=== PATIENT | female | born 1970 | race Caucasian/White ===

== ENCOUNTER 2017-07-08 09:43 | Emergency (ER) | payer OTHER ==
[~2017-07-08] VITALS: Wt 89.0 kg
[~2017-07-08 09:43] MED LIST: ACET500C5 PO; CLIN-73 PO; MUPI22OI2 IN
--- NOTE | 2017-07-08 11:48 | ERD ---
ER Documentation Chief Complaint Chief Complaint recheck of abscess to r underarm HPI This a 46-year-old female presents the emergency department today for wound check of abscesses that she had drained 2 days ago. Patient states she is taking her antibiotics as prescribed. States she is taking her diabetes medication. Denies any fevers or chills. ROS All systems reviewed and are negative except as per history of present illness. Medications Home Meds Active Scripts Acetaminophen* (Tylophen*) 500 Mg Capsule, 1 CAP PO Q6H Y for PAIN AND OR ELEVATED TEMP, #20 CAP Prov:JUSTINE BLOOD PA-C 07/06/17 Clindamycin Hcl* (Clindamycin Hcl*) 300 Mg Capsule, 300 MG PO TID for 10 Days, CAP Prov:JUSTINE BLOOD PA-C 07/06/17 Mupirocin* (Bactroban*) 2% -22 Gram Oint...g., 1 APPLIC IN BID for 7 Days, EA Prov:JUSTINE BLOOD PA-C 07/06/17 PMhx/Soc History of Surgery: No Anesthesia Reaction: No Hx Neurological Disorder: No Hx Respiratory Disorders: No Hx Cardiac Disorders: Yes (htn, cholesterol ) Hx Psychiatric Problems: No Hx Miscellaneous Medical Probl: Yes (dm) Hx Alcohol Use: No Hx Substance Use: No Hx Tobacco Use: No Physical Exam Vitals Vital Signs Date Time Temp Pulse Resp B/P Pulse Ox O2 Delivery O2 Flow Rate FiO2 07/08/17 09:57 98.0 78 18 180/84 99 Physical Exam Const: morbidly obese, NAD Head: Atraumatic Eyes: Normal Conjunctiva ENT: Normal External Ears, Nose and Mouth. Neck: Full range of motion..~ No meningismus. Resp: Clear to auscultation bilaterally Cardio: Regular rate and rhythm, no murmurs Abd: Soft, non tender, non distended. Normal bowel sounds Skin: Right groin and right abdomen abscesses with evidence of packing. Mild drainage. No erythema or warmth. Right axilla abscess is draining. No evidence of packing Back: No midline or flank tenderness Ext: No cyanosis, or edema Neur: Awake and alert Psych: Normal Mood and Affect Procedures/MDM This is a 46-year-old female who presents the emergency department today for wound check of abscess that she had drained 2 days ago. On review of patient's medical records she was seen here 2 days ago and had her abscesses drained at that time. There was wound packing in place in the lower abdomen and groin area. Patient is afebrile and otherwise well-appearing. Her packing was removed. There is also some drainage from the axilla abscess. This was not packed. Patient symptoms at this time most consistent with multiple abscesses. Patient has a history of diabetes. She was instructed to continue taking her antibiotics as prescribed. She may follow back with her primary care doctor. Do not feel that that she requires further evaluation or management at this time. Wounds were redressed here in the emergency department. Low suspicion for sepsis, deep space tracking infection. At this time the patient is stable for discharge and outpatient management. Patient should follow up with their PCP in the next 1-2 days. They may return to the emergency department sooner for any persistent or worsening of symptoms. Patient understood and agreed with the plan. Departure Diagnosis: Primary Impression: Wound check, abscess Condition: Fair Patient Instructions: Wound Care Referrals: your PCP Additional Instructions: Llame al doctor RITA y nasim brinda DEWAYNE PARA DENTRO DE 1-2 LU.Dgale a la secretaria que nosotros le instruimos hacer esta dewayne.Avise o llame si rodriguez condicin se empeora antes de la dewayne. Regresa aqui si peor o no mejor. Keep wounds clean and dry. Take antibiotics as prescribed. Take your diabetes medications as prescribed JACOB JIN PA-C Jul 08, 2017 11:48
== END 2017-07-08 11:46 | disposition home or self-care (01) ==
LOC: FTE 09:43
DX: Z48.01 Encounter for change or removal of surgical wound dressing (principal); E66.01 Morbid (severe) obesity due to excess calories; I10 Essential (primary) hypertension; E11.9 Type 2 diabetes mellitus without complications
CPT/HCPCS: 99281

== ENCOUNTER 2017-12-05 09:27 | Emergency (ER) | END 2017-12-05 13:38 | disposition home or self-care (01) ==